=== PATIENT | female | born 1935 | race African-American/Black ===

== ENCOUNTER 2017-01-29 05:15 | Emergency (ER) | payer MEDICARE, MEDICAID ==
[~2017-01-29] VITALS: Ht 165.1 cm; Wt 87.0 kg
[~2017-01-29 05:15] MED LIST: ALBUTEROL; FLEXERIL; NORCO; TRAMADOL
[2017-01-29] MEDS ORDERED: SODIUM CHLORIDE 0.9% 1,000 ML IV ONE (05:53)
[2017-01-29 06:21] LABS: BASOPHILS % 0.4 % (0.0-2.0); EOSINOPHILS % 3.5 % (0.0-5.0); HEMATOCRIT. 33.8 % (36.0-48.0); HEMOGLOBIN. 11.1 g/dL (12.0-16.0); LYMPHOCYTES % 22.3 % (20.0-50.0); MEAN CORPUSCULAR HEMOGLOBIN 33.2 pg (28.0-32.0); MEAN CORPUSCULAR VOLUME 100.6 fL (81.0-99.0); MEAN PLATELET VOLUME 7.1 fl (7.4-10.4); NEUTROPHILS % 69.8 % (40.0-76.0); PLATELET 211 x1000/uL (130-400); RED BLOOD CELL COUNT 3.36 mill/uL (4.2-5.4); RED CELL DISTRIBUTION WIDTH 14.9 % (11.6-14.6)
[2017-01-29 06:39] LABS: CARBON DIOXIDE 26 mEq/L (21-32); CHLORIDE 107 mEq/L (98-107); TROPONIN I < 0.02 ng/mL (0.00-0.04)
[2017-01-29] MEDS ORDERED: KETOROLAC 30MG/ML VIAL IV ONE (08:15)
[2017-01-29 10:03] LABS: GLUCOSE URINE NEGATIVE (NEGATIVE); KETONES URINE NEGATIVE (NEGATIVE); LEUKOCYTE ESTERASE URINE NEGATIVE (NEGATIVE); NITRITE URINE NEGATIVE (NEGATIVE); OCCULT BLOOD URINE NEGATIVE (NEGATIVE); PROTEIN URINE NEGATIVE (NEGATIVE); SPECIFIC GRAVITY URINE 1.013 (1.005-1.030); UROBILINOGEN URINE 0.2 E.U./dL (0.2-1.0)
[2017-01-29 10:19] LABS: COLOR URINE YELLOW (YELLOW)
[2017-01-29 10:20] LABS: CLARITY URINE CLOUDY (CLEAR)
[2017-01-29 11:15] VITALS: BP 111/80
== END 2017-01-29 11:39 | disposition home or self-care (01) ==
LOC: ER 05:15
DX: K44.9 Diaphragmatic hernia without obstruction or gangrene (principal); J45.909 Unspecified asthma, uncomplicated
CPT/HCPCS: 36415; 71010; 74176; 80053; 81001; 83605; 83690; 84484; 85025; 93005; 96374; 99285; C1893; J1885; J7030

== ENCOUNTER 2017-11-28 01:16 | Inpatient (IN) | payer MEDICARE, OTHER ==
[~2017-11-28] VITALS: Ht 165.1 cm; Wt 81.2 kg
[~2017-11-28 01:16] MED LIST changes: -ALBUTEROL; +ALPR1TAB2 PO; +ESOM40CA MT; -FLEXERIL; +LETR2.5T6 MT; +MONT10TA24 MT; -NORCO; +PREG300C MT; +TRAM50TA3 MT; -TRAMADOL
[2017-11-28 04:22] LABS: PARTIAL THROMBOPLASTIN TIME 21.6 sec (23.4-31.0); PROTHROMBIN TIME 9.9 sec (9.1-11.1)
[2017-11-28 04:23] LABS: CHLORIDE 106 mEq/L (98-107)
[2017-11-28 05:03] LABS: CLARITY URINE CLEAR (CLEAR); COLOR URINE YELLOW (YELLOW); KETONES URINE NEGATIVE (NEGATIVE); LEUKOCYTE ESTERASE URINE 1+ (NEGATIVE); NITRITE URINE NEGATIVE (NEGATIVE); OCCULT BLOOD URINE NEGATIVE (NEGATIVE); PH URINE 5.5 (4.5-8.0); PROTEIN URINE NEGATIVE (NEGATIVE); SPECIFIC GRAVITY URINE 1.007 (1.005-1.030); UROBILINOGEN URINE 0.2 E.U./dL (0.2-1.0)
[2017-11-28] MEDS ORDERED: MORPHINE SULFATE 4 MG/ML CPJ (NOT FOR IM USE) IV ONE (05:15)
[2017-11-28] MEDS ORDERED: SODIUM CHLORIDE 0.9% 1,000 ML IV ONE (05:15)
[2017-11-28] MEDS ORDERED: CEFTRIAXONE 1 G PREMIX 50 ML IV NR (06:00)
[2017-11-28 06:49] LABS: BASOPHILS % 0.8 % (0.0-2.0); EOSINOPHILS % 1.2 % (0.0-5.0); HEMATOCRIT. 30.6 % (36.0-48.0); HEMOGLOBIN. 10.3 g/dL (12.0-16.0); LYMPHOCYTES % 22.1 % (20.0-50.0); MEAN CORPUSCULAR HEMOGLOBIN 33.5 pg (28.0-32.0); MEAN CORPUSCULAR VOLUME 99.3 fL (81.0-99.0); MEAN PLATELET VOLUME 6.9 fl (7.4-10.4); MONOCYTES % 9.5 % (2.0-8.0); NEUTROPHILS % 66.4 % (40.0-76.0); PLATELET 106 x1000/uL (130-400); RED BLOOD CELL COUNT 3.09 mill/uL (4.2-5.4); RED CELL DISTRIBUTION WIDTH 17.5 % (11.6-14.6)
[2017-11-28] MEDS ORDERED: NA PHOS,M-B/NA PHOS,DI-BA ENEMA 118ML PR PRN (08:15)
[2017-11-28] MEDS ORDERED: NITROGLYCERIN 0.4MG TABLET SL SL PRN (08:15)
[2017-11-28] MEDS ORDERED: DIPHENHYDRAMINE 50MG/ML VIAL IV PRN (08:15)
[2017-11-28] MEDS ORDERED: MAGNESIUM/ALUMINUM HYDROXIDE/SIMETHICONE 30ML UDC PO PRN (08:15)
[2017-11-28] MEDS ORDERED: ENOXAPARIN 40MG/0.4ML SYR SUBCUT SCH (08:15)
[2017-11-28] MEDS ORDERED: LORAZEPAM 0.5MG TABLET PO PRN (08:15)
[2017-11-28] MEDS ORDERED: CLONIDINE 0.1MG TABLET PO PRN (08:15)
[2017-11-28] MEDS ORDERED: DOCUSATE SODIUM 100MG CAPSULE PO PRN (08:15)
[2017-11-28] MEDS ORDERED: TRAMADOL 50MG TABLET PO PRN (08:15)
[2017-11-28] MEDS ORDERED: GUAIFENESIN 200MG/10ML SUGAR FREE UDC PO PRN (08:15)
[2017-11-28] MEDS ORDERED: IPRATROPIUM/ALBUTEROL 0.5-3(2.5)MG/3ML NEB INH PRN (08:15)
[2017-11-28] MEDS ORDERED: ENOXAPARIN 30MG/0.3ML SYR SUBCUT SCH (09:30)
[2017-11-28 10:00] VITALS: BP 143/78
[2017-11-28] MEDS: FAMOTIDINE 20MG TABLET PO SCH (10:00)
[2017-11-28] MEDS: SUCRALFATE 1 G/10 ML UDC PO SCH ×4 (10:00→20:35)
[2017-11-28] MEDS: ASCORBIC ACID 500 MG TABLET PO SCH ×2 (10:00→20:35)
[2017-11-28] MEDS: METOPROLOL TARTRATE 25MG TABLET PO SCH ×2 (10:01→20:35)
[2017-11-28] MEDS: SODIUM CHLORIDE 0.9% 1,000 ML IV SCH (10:02)
[2017-11-28] MEDS ORDERED: CEFTRIAXONE 1 G PREMIX 50 ML IV SCH (10:30)
[2017-11-28] MEDS ORDERED: LEVOFLOXACIN 500MG PREMIX 100 ML IV SCH (10:30)
[2017-11-28 12:00] VITALS: BP 127/62
[2017-11-28 16:00] VITALS: BP 110/62
[2017-11-28 16:37] LABS: CREATINE KINASE 39 IU/L (26-192)
[2017-11-28 16:38] LABS: CREATINE KINASE MB FRACTION < 1.0 ng/mL (0.5-3.6)
[2017-11-28] MEDS: ENOXAPARIN 80MG/0.8ML SYR SUBCUT SCH (16:43)
[2017-11-28 19:51] VITALS: BP 120/49
[2017-11-29] VITALS: BP 126/52
[2017-11-29 00:12] LABS: CREATINE KINASE 41 IU/L (26-192)
[2017-11-29 00:13] LABS: CREATINE KINASE MB FRACTION < 1.0 ng/mL (0.5-3.6)
[2017-11-29 04:00] VITALS: BP 136/67
[2017-11-29] MEDS: SUCRALFATE 1 G/10 ML UDC PO SCH ×4 (06:47→20:52)
[2017-11-29 08:00] VITALS: BP 136/52
[2017-11-29] MEDS: SODIUM CHLORIDE 0.9% 1,000 ML IV SCH (09:02)
[2017-11-29] MEDS: LEVOFLOXACIN 250MG PREMIX 50 ML IV SCH (09:02)
[2017-11-29] MEDS: ASCORBIC ACID 500 MG TABLET PO SCH ×2 (09:03→20:52)
[2017-11-29] MEDS: METOPROLOL TARTRATE 25MG TABLET PO SCH ×2 (09:03→20:52)
[2017-11-29] MEDS: FAMOTIDINE 20MG TABLET PO SCH (09:04)
[2017-11-29 12:00] VITALS: BP 130/53
[2017-11-29] MEDS: ONDANSETRON HCL 4MG/2ML INJ IV PRN ×2 (12:07→20:17)
[2017-11-29] MEDS: CEFTRIAXONE 1 G PREMIX 50 ML IV SCH (12:42)
[2017-11-29] MEDS: ENOXAPARIN 80MG/0.8ML SYR SUBCUT SCH (14:23)
[2017-11-29 16:00] VITALS: BP 131/58
[2017-11-29 20:00] VITALS: BP 119/55
[2017-11-29] MEDS: ACETAMINOPHEN 325MG TABLET PO PRN (20:17)
[2017-11-30] VITALS: BP 129/52
[2017-11-30 04:00] VITALS: BP 143/64
[2017-11-30] MEDS: SUCRALFATE 1 G/10 ML UDC PO SCH ×4 (07:10→21:31)
[2017-11-30 07:12] LABS: BASOPHILS % 0.5 % (0.0-2.0); EOSINOPHILS % 0.6 % (0.0-5.0); HEMATOCRIT. 25.8 % (36.0-48.0); HEMOGLOBIN. 8.7 g/dL (12.0-16.0); LYMPHOCYTES % 28.9 % (20.0-50.0); MEAN CORPUSCULAR HEMOGLOBIN 33.6 pg (28.0-32.0); MEAN CORPUSCULAR VOLUME 99.3 fL (81.0-99.0); PLATELET 56 x1000/uL (130-400); RED BLOOD CELL COUNT 2.59 mill/uL (4.2-5.4); RED CELL DISTRIBUTION WIDTH 17.3 % (11.6-14.6)
[2017-11-30 07:36] LABS: CHLORIDE 103 mEq/L (98-107)
[2017-11-30 08:00] VITALS: BP 129/48
[2017-11-30] MEDS: METOPROLOL TARTRATE 25MG TABLET PO SCH ×2 (08:25→21:32)
[2017-11-30] MEDS: FAMOTIDINE 20MG TABLET PO SCH (08:26)
[2017-11-30] MEDS: LEVOFLOXACIN 250MG PREMIX 50 ML IV SCH (08:26)
[2017-11-30] MEDS: ASCORBIC ACID 500 MG TABLET PO SCH ×2 (08:26→21:31)
[2017-11-30] MEDS ORDERED: APIXABAN XX SCH (10:00)
[2017-11-30] MEDS ORDERED: SODIUM POLYSTYRENE SULFONATE 15 G/60 ML BOT PO NR (11:00)
[2017-11-30] MEDS: APIXABAN 5 MG TABLET PO SCH ×2 (11:43→17:00)
[2017-11-30 12:00] VITALS: BP 154/61
[2017-11-30] MEDS: CEFTRIAXONE 1 G PREMIX 50 ML IV SCH (12:49)
[2017-11-30 15:48] VITALS: BP 143/61
[2017-11-30] MEDS: SODIUM CHLORIDE 0.9% 1,000 ML IV SCH (17:01)
[2017-11-30 20:00] VITALS: BP 153/48
[2017-12-01] VITALS: BP 175/71
[2017-12-01] MEDS: ZOLPIDEM TARTRATE 5MG TABLET PO PRN ×2 (01:42→23:45)
[2017-12-01] MEDS ORDERED: MIRA50TA PO (01:56)
[2017-12-01] MEDS ORDERED: DULO30CA51 PO (01:56)
[2017-12-01] MEDS ORDERED: LETR2.5T6 PO (01:56)
[2017-12-01] MEDS ORDERED: [UNRECOGNIZED DRUG - OTHER] PO (01:56)
[2017-12-01] MEDS ORDERED: DICL50TA7 PO (01:56)
[2017-12-01 04:00] VITALS: BP 161/72
[2017-12-01] MEDS: SUCRALFATE 1 G/10 ML UDC PO SCH ×4 (06:46→20:06)
[2017-12-01 06:56] LABS: BASOPHILS % 0.8 % (0.0-2.0); HEMATOCRIT. 24.8 % (36.0-48.0); HEMOGLOBIN. 8.5 g/dL (12.0-16.0); LYMPHOCYTES % 32.1 % (20.0-50.0); MEAN CORPUSCULAR HEMOGLOBIN 33.9 pg (28.0-32.0); MEAN CORPUSCULAR VOLUME 98.6 fL (81.0-99.0); MONOCYTES % 11.9 % (2.0-8.0); NEUTROPHILS % 54.2 % (40.0-76.0); PLATELET 52 x1000/uL (130-400); RED BLOOD CELL COUNT 2.52 mill/uL (4.2-5.4); RED CELL DISTRIBUTION WIDTH 16.8 % (11.6-14.6)
[2017-12-01 08:00] VITALS: BP 122/65
[2017-12-01] MEDS: APIXABAN 5 MG TABLET PO SCH ×2 (09:00→17:00)
[2017-12-01] MEDS: METOPROLOL TARTRATE 25MG TABLET PO SCH ×2 (09:00→20:06)
[2017-12-01] MEDS: ASCORBIC ACID 500 MG TABLET PO SCH ×2 (09:00→20:06)
[2017-12-01] MEDS: FAMOTIDINE 20MG TABLET PO SCH (09:00)
[2017-12-01] MEDS: LEVOFLOXACIN 250MG PREMIX 50 ML IV SCH (09:00)
[2017-12-01] MEDS: ONDANSETRON HCL 4MG/2ML INJ IV PRN (09:17)
[2017-12-01 12:00] VITALS: BP 143/67
[2017-12-01 18:04] LABS: AMMONIA 21 uMol/L (<32)
[2017-12-01 18:35] LABS: VITAMIN B12 SERUM 835 pg/mL (211-911)
[2017-12-01] MEDS ORDERED: CEFTRIAXONE 1 G PREMIX 50 ML IV SCH (19:00)
[2017-12-01 20:00] VITALS: BP 145/71
[2017-12-01] MEDS: SODIUM CHLORIDE 0.9% 1,000 ML IV SCH (20:08)
[2017-12-02] VITALS: BP 139/59
[2017-12-02 04:00] VITALS: BP 132/51
[2017-12-02] MEDS: SUCRALFATE 1 G/10 ML UDC PO SCH ×4 (06:48→20:42)
[2017-12-02 07:21] LABS: HEMATOCRIT. 24.9 % (36.0-48.0); HEMOGLOBIN. 8.5 g/dL (12.0-16.0); MEAN CORPUSCULAR HEMOGLOBIN 33.8 pg (28.0-32.0); MEAN CORPUSCULAR VOLUME 99.1 fL (81.0-99.0); PLATELET 66 x1000/uL (130-400); RED BLOOD CELL COUNT 2.51 mill/uL (4.2-5.4); RED CELL DISTRIBUTION WIDTH 16.8 % (11.6-14.6)
[2017-12-02 08:00] VITALS: BP 138/54
[2017-12-02] MEDS: ASCORBIC ACID 500 MG TABLET PO SCH ×2 (08:59→20:42)
[2017-12-02] MEDS: METOPROLOL TARTRATE 25MG TABLET PO SCH ×2 (08:59→20:43)
[2017-12-02] MEDS: FAMOTIDINE 20MG TABLET PO SCH (08:59)
[2017-12-02] MEDS: SODIUM CHLORIDE 0.9% 1,000 ML IV SCH ×2 (09:00→18:45)
[2017-12-02] MEDS: APIXABAN 5 MG TABLET PO SCH ×2 (09:00→17:02)
[2017-12-02 12:00] VITALS: BP 162/87
[2017-12-02] MEDS: ACETAMINOPHEN 325MG TABLET PO PRN (16:54)
[2017-12-02] MEDS: METOCLOPRAMIDE HCL 10MG/2ML VIAL IV SCH (16:55)
[2017-12-02 16:56] LABS: PLATELET ESTIMATE DECREASED
[2017-12-02 17:36] LABS: CLARITY URINE CLEAR (CLEAR); COLOR URINE YELLOW (YELLOW); KETONES URINE NEGATIVE (NEGATIVE); LEUKOCYTE ESTERASE URINE NEGATIVE (NEGATIVE); NITRITE URINE NEGATIVE (NEGATIVE); OCCULT BLOOD URINE NEGATIVE (NEGATIVE); PH URINE 5.5 (4.5-8.0); PROTEIN URINE NEGATIVE (NEGATIVE); SPECIFIC GRAVITY URINE 1.006 (1.005-1.030); UROBILINOGEN URINE 0.2 E.U./dL (0.2-1.0)
[2017-12-02 20:00] VITALS: BP_SYST 140; BP_SYST 143; BP_DIAS 53; BP_DIAS 58
[2017-12-02] MEDS: ZOLPIDEM TARTRATE 5MG TABLET PO PRN (22:52)
[2017-12-03] VITALS: BP 145/57
[2017-12-03] MEDS: METOCLOPRAMIDE HCL 10MG/2ML VIAL IV SCH ×4 (00:17→18:04)
[2017-12-03 04:00] VITALS: BP 146/67
[2017-12-03] MEDS: ONDANSETRON HCL 4MG/2ML INJ IV PRN (04:37)
[2017-12-03] MEDS: SUCRALFATE 1 G/10 ML UDC PO SCH ×4 (06:15→21:33)
[2017-12-03 07:47] LABS: HEMATOCRIT 23.5 % (36.0-48.0); HEMOGLOBIN 7.9 g/dL (12.0-16.0); MEAN CORPUSCULAR HEMOGLOBIN 33.3 pg (28.0-32.0); MEAN CORPUSCULAR VOLUME 99.6 fL (81.0-99.0); PLATELET 68 x1000/uL (130-400); RED BLOOD CELL COUNT 2.36 mill/uL (4.2-5.4); RED CELL DISTRIBUTION WIDTH 16.9 % (11.6-14.6)
[2017-12-03 07:57] LABS: INR 1.1; PROTHROMBIN TIME 11.1 sec (9.1-11.1)
[2017-12-03 08:00] VITALS: BP 148/57
[2017-12-03] MEDS: APIXABAN 5 MG TABLET PO SCH (10:16)
[2017-12-03] MEDS: FAMOTIDINE 20MG TABLET PO SCH (10:16)
[2017-12-03] MEDS: METOPROLOL TARTRATE 25MG TABLET PO SCH ×2 (10:16→21:34)
[2017-12-03] MEDS: ASCORBIC ACID 500 MG TABLET PO SCH ×2 (10:16→21:33)
[2017-12-03 12:00] VITALS: BP 143/52
[2017-12-03] MEDS: SODIUM CHLORIDE 0.9% 1,000 ML IV SCH (13:43)
[2017-12-03] MEDS ORDERED: ALPRAZOLAM 0.25 MG TABLET PO NR (15:00)
[2017-12-03 16:00] VITALS: BP 148/61
[2017-12-03] MEDS ORDERED: APIXABAN 2.5 MG TABLET PO SCH (17:00)
[2017-12-03] MEDS: PANTOPRAZOLE SODIUM 40 MG/VIAL IV SCH ×2 (18:04→21:34)
[2017-12-03 20:00] VITALS: BP 128/53
[2017-12-03] MEDS: ACETAMINOPHEN 325MG TABLET PO PRN (21:38)
[2017-12-03] MEDS ORDERED: ALPRAZOLAM 0.25 MG TABLET PO PRN (23:30)
[2017-12-04] VITALS (12 sets, daily range): BP systolic 122–162; BP diastolic 53–75
[2017-12-04] MEDS ORDERED: DEXT 5%/0.45% NACL 1000ML 1,000 ML IV SCH
[2017-12-04] MEDS: METOCLOPRAMIDE HCL 10MG/2ML VIAL IV SCH ×4 (00:13→18:02)
[2017-12-04] MEDS: SUCRALFATE 1 G/10 ML UDC PO SCH ×3 (06:25→18:01)
[2017-12-04 07:40] LABS: BASOPHILS % 0.7 % (0.0-2.0); EOSINOPHILS % 1.5 % (0.0-5.0); HEMATOCRIT. 27.3 % (36.0-48.0); HEMOGLOBIN. 9.5 g/dL (12.0-16.0); LYMPHOCYTES % 28.6 % (20.0-50.0); MEAN CORPUSCULAR HEMOGLOBIN 33.9 pg (28.0-32.0); MEAN CORPUSCULAR VOLUME 97.4 fL (81.0-99.0); MEAN PLATELET VOLUME 7.5 fl (7.4-10.4); MONOCYTES % 9.6 % (2.0-8.0); NEUTROPHILS % 59.6 % (40.0-76.0); PLATELET 89 x1000/uL (130-400); RED CELL DISTRIBUTION WIDTH 16.9 % (11.6-14.6)
[2017-12-04 07:53] LABS: INR 1.1; PARTIAL THROMBOPLASTIN TIME 27.6 sec (23.4-31.0); PROTHROMBIN TIME 11.2 sec (9.1-11.1)
[2017-12-04 08:10] LABS: CHLORIDE 106 mEq/L (98-107)
[2017-12-04] MEDS: METOPROLOL TARTRATE 25MG TABLET PO SCH (08:57)
[2017-12-04] MEDS: ASCORBIC ACID 500 MG TABLET PO SCH (08:58)
[2017-12-04] MEDS: PANTOPRAZOLE SODIUM 40 MG/VIAL IV SCH (09:14)
[2017-12-04] MEDS ORDERED: MIDAZOLAM HCL 5 MG/5 ML VIAL IV PRN (14:03)
[2017-12-04] MEDS ORDERED: FENTANYL CITRATE/PF 50MCG/ML 2ML VIAL IV PRN (14:04)
[2017-12-04] MEDS ORDERED: FENTANYL CITRATE/PF 50MCG/ML 2ML VIAL ONE (14:07)
[2017-12-04] MEDS ORDERED: MIDAZOLAM HCL 5 MG/5 ML VIAL ONE (14:07)
[2017-12-04] MEDS ORDERED: APIXABAN 2.5 MG TABLET PO NR (17:30)
[2017-12-07] MEDS ORDERED: APIXABAN 5 MG TABLET PO SCH (09:00)
== END 2017-12-04 20:40 | disposition home or self-care (01) | DRG 91 ==
LOC: ER 01:16 → 8WST 05:51 → EDBEDREQ 05:53 → EDBEDREQTM 05:53 → ENRESERV 07:24 → SUPCPDRO 08:04
PROVIDERS: ADMIT Internal Medicine; ATTEND Internal Medicine
PROC: 4A00X4Z Measurement of Central Nervous Electrical Activity, External Approach (ICD-10-PCS; 2017-12-01)
PROC: 0DB68ZX Excision of Stomach, Via Natural or Artificial Opening Endoscopic, Diagnostic (ICD-10-PCS; 2017-12-04)
PROC: 0DB98ZX Excision of Duodenum, Via Natural or Artificial Opening Endoscopic, Diagnostic (ICD-10-PCS; 2017-12-04)
PROC: 0DB58ZX Excision of Esophagus, Via Natural or Artificial Opening Endoscopic, Diagnostic (ICD-10-PCS; 2017-12-04)
PROC: 30233N1 Transfusion of Nonautologous Red Blood Cells into Peripheral Vein, Percutaneous Approach (ICD-10-PCS; principal; 2017-12-04 13:00)
DX: G92 Toxic encephalopathy (principal); I26.99 Other pulmonary embolism without acute cor pulmonale; N17.0 Acute kidney failure with tubular necrosis; N39.0 Urinary tract infection, site not specified; E44.1 Mild protein-calorie malnutrition; D68.59 Other primary thrombophilia; E66.2 Morbid (severe) obesity with alveolar hypoventilation; I82.432 Acute embolism and thrombosis of left popliteal vein; I82.A11 Acute embolism and thrombosis of right axillary vein; N17.9 Acute kidney failure, unspecified; K80.20 Calculus of gallbladder without cholecystitis without obstruction; K29.70 Gastritis, unspecified, without bleeding; E87.5 Hyperkalemia; D53.9 Nutritional anemia, unspecified; D69.6 Thrombocytopenia, unspecified; E11.22 Type 2 diabetes mellitus with diabetic chronic kidney disease; F03.90 Unspecified dementia, unspecified severity, without behavioral disturbance, psychotic disturbance, mood disturbance, and anxiety; F41.9 Anxiety disorder, unspecified; I12.9 Hypertensive chronic kidney disease with stage 1 through stage 4 chronic kidney disease, or unspecified chronic kidney disease; J45.909 Unspecified asthma, uncomplicated; K21.9 Gastro-esophageal reflux disease without esophagitis; K44.9 Diaphragmatic hernia without obstruction or gangrene; K57.90 Diverticulosis of intestine, part unspecified, without perforation or abscess without bleeding; E11.43 Type 2 diabetes mellitus with diabetic autonomic (poly)neuropathy; K76.0 Fatty (change of) liver, not elsewhere classified; K59.00 Constipation, unspecified; K25.9 Gastric ulcer, unspecified as acute or chronic, without hemorrhage or perforation; M10.9 Gout, unspecified; K31.84 Gastroparesis; M79.7 Fibromyalgia; N18.9 Chronic kidney disease, unspecified; R62.7 Adult failure to thrive; G89.29 Other chronic pain; M19.90 Unspecified osteoarthritis, unspecified site; Z96.659 Presence of unspecified artificial knee joint; Z79.01 Long term (current) use of anticoagulants; Z68.29 Body mass index [BMI] 29.0-29.9, adult; Z85.3 Personal history of malignant neoplasm of breast; Z91.19 Patient's noncompliance with other medical treatment and regimen; Z79.899 Other long term (current) drug therapy
CPT/HCPCS: 36415; 71045; 73030; 74018; 76705; 78582; 80048; 80061; 82140; 82270; 82550; 82553; 82607; 83036; 83605; 83880; 84145; 84443; 84484; 85007; 85027; 86022; 86677; 86850; 86900; 86920; 87804; 88305; 88313; 93005; 93306; 93970; 93971; 96365; 96368; 96375; 99285; A6261; A9558; C1893; C9113; J0696; J1650; J1956; J2250; J2270; J2405; J2765; J3010; J3490; J7030; J7050; P9016

== ENCOUNTER 2019-02-21 03:18 | Emergency (ER) | payer MEDICARE, OTHER ==
[~2019-02-21] VITALS: Ht 152.4 cm; Wt 81.0 kg
[~2019-02-21 03:18] MED LIST changes: +DICL50TA7 PO; +DULO30CA52 PO; -LETR2.5T6 MT; +LETR2.5T7 MT; +LETR2.5T7 PO; +MIRA50TA PO; -MONT10TA24 MT; +MONT10TA26 MT; +[UNRECOGNIZED DRUG - OTHER] PO
[2019-02-21] MEDS ORDERED: KETOROLAC 30MG/ML VIAL IV STA (04:44)
[2019-02-21] MEDS ORDERED: SODIUM CHLORIDE 0.9% 1,000 ML IV ONE (04:44)
[2019-02-21 05:18] LABS: BASOPHILS % 0.5 % (0.0-2.0); HEMOGLOBIN. 9.5 g/dL (12.0-16.0); LYMPHOCYTES % 17.8 % (20.0-50.0); MEAN CORPUSCULAR HEMOGLOBIN 34.8 pg (28.0-32.0); MEAN CORPUSCULAR VOLUME 102.3 fL (81.0-99.0); MEAN PLATELET VOLUME 7.2 fl (7.4-10.4); MONOCYTES % 6.3 % (2.0-8.0); NEUTROPHILS % 72.4 % (40.0-76.0); PLATELET 225 x1000/uL (130-400); RED BLOOD CELL COUNT 2.74 mill/uL (4.2-5.4); RED CELL DISTRIBUTION WIDTH 14.9 % (11.6-14.6)
[2019-02-21 05:24] LABS: CHLORIDE 111 mEq/L (98-107)
[2019-02-21] MEDS ORDERED: HYDROCODONE/ACETAMINOPHEN 5/325MG TABLET PO ONE (08:00)
[2019-02-21] MEDS ORDERED: MORPHINE SULFATE 4 MG/ML CPJ (NOT FOR IM USE) IV ONE (08:30)
[2019-02-21] MEDS ORDERED: ONDANSETRON HCL 4MG/2ML INJ IV ONE (08:30)
[2019-02-21 09:26] LABS: CLARITY URINE CLEAR (CLEAR); COLOR URINE YELLOW (YELLOW); KETONES URINE NEGATIVE (NEGATIVE); LEUKOCYTE ESTERASE URINE NEGATIVE (NEGATIVE); NITRITE URINE NEGATIVE (NEGATIVE); OCCULT BLOOD URINE TRACE (NEGATIVE); PROTEIN URINE NEGATIVE (NEGATIVE); SPECIFIC GRAVITY URINE 1.012 (1.005-1.030); UROBILINOGEN URINE 0.2 E.U./dL (0.2-1.0)
[2019-02-21 11:00] VITALS: BP 116/68
== END 2019-02-21 11:00 | disposition home or self-care (01) ==
LOC: ER 03:18
DX: I10 Essential (primary) hypertension (principal); R11.2 Nausea with vomiting, unspecified; R10.9 Unspecified abdominal pain; J45.909 Unspecified asthma, uncomplicated; M79.7 Fibromyalgia; Z86.19 Personal history of other infectious and parasitic diseases; Z79.899 Other long term (current) drug therapy; Z96.659 Presence of unspecified artificial knee joint
CPT/HCPCS: 36415; 70450; 80053; 81003; 85025; 96361; 96374; 96375; 99284; J1885; J2270; J2405; J7030

== ENCOUNTER 2019-02-26 06:37 | Emergency (ER) | payer MEDICARE ==
[~2019-02-26] VITALS: Ht 162.6 cm; Wt 66.0 kg
[2019-02-26] MEDS ORDERED: HYDROCODONE/ACETAMINOPHEN 5/325MG TABLET PO ONE (07:15)
[2019-02-26] MEDS ORDERED: ONDANSETRON HCL 4MG/2ML INJ IV ONE (08:00)
[2019-02-26] MEDS ORDERED: MORPHINE SULFATE 4 MG/ML CPJ (NOT FOR IM USE) IV ONE (08:00)
[2019-02-26 08:03] LABS: BASOPHILS % 0.7 % (0.0-2.0); HEMATOCRIT. 27.6 % (36.0-48.0); HEMOGLOBIN. 9.5 g/dL (12.0-16.0); LYMPHOCYTES % 22.7 % (20.0-50.0); MEAN CORPUSCULAR VOLUME 102.1 fL (81.0-99.0); MEAN PLATELET VOLUME 8.1 fl (7.4-10.4); MONOCYTES % 7.9 % (2.0-8.0); NEUTROPHILS % 64.7 % (40.0-76.0); PLATELET 273 x1000/uL (130-400); RED CELL DISTRIBUTION WIDTH 15.5 % (11.6-14.6)
[2019-02-26 08:09] LABS: CHLORIDE 110 mEq/L (98-107)
[2019-02-26] MEDS ORDERED: METRONIDAZOLE 500 MG PREMIX 100 ML IV ONE (11:30)
[2019-02-26] MEDS ORDERED: CEFTRIAXONE 1 G PREMIX 50 ML IV ONE (11:30)
[2019-02-26] MEDS ORDERED: KETOROLAC 30MG/ML VIAL IV ONE (14:15)
[2019-02-26] MEDS ORDERED: IOHEXOL-350 100 ML BOTTLE ONE (14:29)
[2019-02-26 15:46] VITALS: BP 155/60
== END 2019-02-26 16:49 | disposition short-term general hospital (02) ==
LOC: ER 06:56 → EDBEDREQ 11:39 → ER 16:49 → CANBEDREQ 16:49
DX: K57.92 Diverticulitis of intestine, part unspecified, without perforation or abscess without bleeding (principal); R51 Headache; R10.30 Lower abdominal pain, unspecified; H53.8 Other visual disturbances; R11.10 Vomiting, unspecified; M79.7 Fibromyalgia; J45.909 Unspecified asthma, uncomplicated; I10 Essential (primary) hypertension; Z86.19 Personal history of other infectious and parasitic diseases; Z79.899 Other long term (current) drug therapy; Z87.19 Personal history of other diseases of the digestive system
CPT/HCPCS: 36415; 70496; 71045; 74176; 80053; 83690; 84484; 85025; 93005; 96365; 96375; 99285; J0696; J1885; J2270; J2405; J3490; Q9967